=== PATIENT | male | born 1955 ===

== ENCOUNTER → 2024-01-12 15:02 | Outpatient (CLI) | payer OTHER ==
[2024-01-12 15:52] LABS: CREATININE SERUM 1.24 mg/dL (0.70-1.30)
== END | disposition home or self-care (01) ==
LOC: LAB 15:02
PROVIDERS: ATTEND Radiology Diagnostic Radiology
DX: J84.10 Pulmonary fibrosis, unspecified (principal)

== ENCOUNTER 2024-01-13 09:21 | Outpatient (CLI) | payer OTHER | END 2024-01-13 09:25 | disposition home or self-care (01) | LOC: TOM 09:21 | DX: J84.10 Pulmonary fibrosis, unspecified (principal) | CPT/HCPCS: 71260; Q9965 ==